=== PATIENT | male | born 1940 | race Caucasian/White ===

== ENCOUNTER 2016-07-08 12:51 | Inpatient (IN) | payer MEDICARE ==
[~2016-07-08] VITALS: Ht 188 cm; Wt 65.4 kg
[2016-07-08] MEDS ORDERED: SODIUM CHLORIDE 0.9% 1,000 ML IV ONE ×2 (14:45→16:15)
[2016-07-08] MEDS ORDERED: ONDANSETRON HCL 4 MG/2 ML VIAL IVP ONE (14:45)
[2016-07-08 14:58] LABS: BASOPHILS % (AUTO) 0.3 % (0.0-2.0); EOSINOPHILS % (AUTO) 0.6 % (1.0-6.0); HEMATOCRIT 53.8 % (41-53); HEMOGLOBIN 17.8 g/dL (13.5-17.5); LYMPHOCYTES # (AUTO) 0.8 K/uL (1.0-4.8); MEAN CORPUSCULAR HEMOGLOBIN 29.2 pg (26.0-34.0); MEAN CORPUSCULAR VOLUME 88 fL (80-100); MONOCYTES # (AUTO) 0.4 K/uL (0.1-1.0); NEUTROPHILS # (AUTO) 4.3 K/uL (1.8-7.7); NEUTROPHILS % (AUTO) 77.1 % (40.0-70.0); PLATELET COUNT (AUTO) 237 K/uL (150-450); RED BLOOD CELL COUNT(AUTO) 6.09 MIL/uL (4.50-5.90); RED CELL DISTRIBUTION WIDTH 13.8 % (11.5-14.5); WHITE BLOOD COUNT (AUTO) 5.6 K/uL (4.5-11.0)
[2016-07-08 15:20] LABS: ANION GAP 15 mmol/L (8-16); CALCIUM, TOTAL 9.8 mg/dL (8.8-10.5); CARBON DIOXIDE 25 mmol/L (22-29); CHLORIDE 100 mmol/L (98-107); CREATININE 1.14 mg/dL (0.60-1.30); GLOMERULAR FILTR. RATE CALC > 60 mL/min (>60); POTASSIUM 4.1 mmol/L (3.5-5.1); SODIUM SERUM 140 mmol/L (136-145); UREA NITROGEN, BLOOD 35 mg/dL (7-18)
[2016-07-08 15:22] LABS: ALANINE AMINOTRANSFERASE 19 U/L (12-78); ALBUMIN 4.1 g/dL (3.4-5.0); ASPARTATE AMINOTRANSFERASE 18 U/L (15-37); BILIRUBIN,TOTAL 2.6 mg/dL (0.1-1.0); TOTAL PROTEIN, SERUM 7.8 g/dL (6.4-8.2)
[2016-07-08 15:35] LABS: B-TYPE NATRIURETIC PEPTIDE 7 pg/mL (0-100)
[2016-07-08 16:45] LABS: ADD UA MICROSCOPIC NO; APPEARANCE,URINE CLEAR (CLEAR); GLUCOSE, URINE (UA) NEGATIVE (NEGATIVE); KETONES,URINE >=80 mg/dL (NEGATIVE); LEUKOCYTE ESTERASE ,URINE NEGATIVE (NEGATIVE); OCCULT BLOOD,URINE NEGATIVE (NEGATIVE); PROTEIN,URINE POS 1+ (NEGATIVE)
[2016-07-08] MEDS ORDERED: HALOPERIDOL 5 MG TABLET PO PRN (19:30)
[2016-07-08 21:08] VITALS: BP_SYST 125; BP_SYST 127; BP_DIAS 82; BP_DIAS 88; BP_DIAS 96
[2016-07-08] MEDS ORDERED: INFLUENZA VIRUS VACCINE QVS 2016-17 (3YR+)/PF 60 MCG/0.5 ML SYRINGE IM ONE (22:15)
[2016-07-09 08:00] VITALS: BP 117/69
[2016-07-09] MEDS ORDERED: BENZOCAINE/MENTHOL LOZENGE [8 LOZENGES/PACKET] MM PRN (09:15)
[2016-07-09] MEDS ORDERED: ACETAMINOPHEN 325 MG TABLET PO PRN (09:15)
[2016-07-09] MEDS ORDERED: CloNIDine HCL 0.1 MG TABLET PO PRN (09:15)
[2016-07-09] MEDS ORDERED: MAGNESIUM HYDROXIDE SUSPENSION 30 ML UDCUP PO PRN (09:15)
[2016-07-09] MEDS ORDERED: ALBUTEROL SULFATE HFA 90 MCG/PUFF 8 GM INHALER IH PRN (09:15)
[2016-07-09] MEDS ORDERED: IBUPROFEN 600 MG TABLET PO PRN (09:15)
[2016-07-09] MEDS ORDERED: PETROLATUM,WHITE 71 GM JELLY TP PRN (09:15)
[2016-07-09] MEDS ORDERED: ONDANSETRON HCL 4 MG TABLET PO PRN (09:15)
[2016-07-09] MEDS ORDERED: MAG HYDROX/AL HYDROX/SIMETH ES 30 ML SUSPENSION UDCUP PO PRN (09:15)
[2016-07-09] MEDS ORDERED: BACITRACIN 28.4 GM OINTMENT TP PRN (09:15)
[2016-07-09 19:18] VITALS: BP 125/70
[2016-07-09] MEDS: ZOLPIDEM TARTRATE 10 MG TABLET PO PRN (20:17)
[2016-07-10] MEDS ORDERED: INFLUENZA VIRUS VACCINE QVS 2016-17 (3YR+)/PF 60 MCG/0.5 ML SYRINGE IM ONE (00:15)
[2016-07-10] MEDS: ZIPRASIDONE HCL 40 MG CAPSULE PO SCH ×2 (06:39→17:16)
[2016-07-10 06:58] LABS: CHOL/HDL RATIO 2.8 (4.2-7.3); THYROID STIMULATING HORMONE 0.42 uIU/mL (0.36-3.74)
[2016-07-10 18:47] VITALS: BP 128/83
[2016-07-10] MEDS: SERTRALINE HCL 50 MG TABLET PO SCH (20:08)
[2016-07-10] MEDS: ZOLPIDEM TARTRATE 10 MG TABLET PO PRN (20:34)
[2016-07-11] MEDS: ZIPRASIDONE HCL 60 MG CAPSULE PO SCH ×2 (06:36→17:17)
[2016-07-11 08:07] VITALS: BP 121/82
[2016-07-11] MEDS: CHOLECALCIFEROL (VIT D3) 1,000 UNITS TABLET PO SCH (09:03)
[2016-07-11 16:53] VITALS: BP 134/80
[2016-07-11] MEDS: ZOLPIDEM TARTRATE 10 MG TABLET PO PRN (20:25)
[2016-07-11] MEDS: SERTRALINE HCL 50 MG TABLET PO SCH (20:25)
[2016-07-12] MEDS: ZIPRASIDONE HCL 60 MG CAPSULE PO SCH ×2 (06:32→17:30)
[2016-07-12 08:00] VITALS: BP 156/93
[2016-07-12] MEDS: CHOLECALCIFEROL (VIT D3) 1,000 UNITS TABLET PO SCH (09:22)
[2016-07-12 16:44] VITALS: BP 155/68
[2016-07-12] MEDS: SERTRALINE HCL 50 MG TABLET PO SCH (21:00)
[2016-07-13 05:50] VITALS: BP 128/81
[2016-07-13] MEDS: ZIPRASIDONE HCL 60 MG CAPSULE PO SCH ×2 (06:38→17:39)
[2016-07-13] MEDS: CHOLECALCIFEROL (VIT D3) 1,000 UNITS TABLET PO SCH (09:46)
[2016-07-13 10:04] VITALS: BP 151/92
[2016-07-13 16:45] VITALS: BP 131/78
[2016-07-13] MEDS: SERTRALINE HCL 100 MG TABLET PO SCH (21:01)
[2016-07-13] MEDS: ZOLPIDEM TARTRATE 10 MG TABLET PO PRN (21:02)
[2016-07-14] MEDS: ZIPRASIDONE HCL 60 MG CAPSULE PO SCH ×4 (06:36→17:21)
[2016-07-14 08:53] VITALS: BP 104/75
[2016-07-14] MEDS: CHOLECALCIFEROL (VIT D3) 1,000 UNITS TABLET PO SCH (09:31)
[2016-07-14 20:03] VITALS: BP 127/68
[2016-07-14] MEDS: SERTRALINE HCL 100 MG TABLET PO SCH (20:19)
[2016-07-14] MEDS: ZOLPIDEM TARTRATE 10 MG TABLET PO PRN (20:19)
[2016-07-15] MEDS: ZIPRASIDONE HCL 60 MG CAPSULE PO SCH ×2 (06:46→18:09)
[2016-07-15 08:47] VITALS: BP 140/82
[2016-07-15] MEDS: CHOLECALCIFEROL (VIT D3) 1,000 UNITS TABLET PO SCH (09:04)
[2016-07-15] MEDS: SERTRALINE HCL 100 MG TABLET PO SCH (09:04)
[2016-07-15 20:15] VITALS: BP 143/90
[2016-07-15] MEDS: TRIHEXYPHENIDYL HCL 5 MG TABLET PO SCH (21:10)
[2016-07-16] MEDS: ZIPRASIDONE HCL 60 MG CAPSULE PO SCH ×2 (06:56→17:32)
[2016-07-16] MEDS: SERTRALINE HCL 100 MG TABLET PO SCH (09:09)
[2016-07-16] MEDS: CHOLECALCIFEROL (VIT D3) 1,000 UNITS TABLET PO SCH (09:09)
[2016-07-16] MEDS: TRIHEXYPHENIDYL HCL 5 MG TABLET PO SCH ×3 (09:09→17:19)
[2016-07-16 09:53] VITALS: BP 110/71
[2016-07-16 16:53] VITALS: BP 121/76
[2016-07-16] MEDS ORDERED: TRIHEXYPHENIDYL HCL 5 MG TABLET PO SCH (18:45)
[2016-07-16 21:22] LABS: BASOPHILS # (AUTO) 0.03 K/uL (0.00-0.20); BASOPHILS % (AUTO) 0.7 % (0.0-2.0); EOSINOPHILS # (AUTO) 0.07 K/uL (0.00-0.70); EOSINOPHILS % (AUTO) 1.33 % (1.0-6.0); HEMATOCRIT 39.8 % (41-53); HEMOGLOBIN 13.5 g/dL (13.5-17.5); LYMPHOCYTES # (AUTO) 0.9 K/uL (1.0-4.8); MEAN CORPUSCULAR HEMOGLOBIN 30.1 pg (26.0-34.0); MEAN CORPUSCULAR HGB CONC 33.8 G/dL (31.0-37.0); MEAN CORPUSCULAR VOLUME 89 fL (80-100); MONOCYTES # (AUTO) 0.5 K/uL (0.1-1.0); NEUTROPHILS # (AUTO) 3.6 K/uL (1.8-7.7); PLATELET COUNT (AUTO) 220 K/uL (150-450); RED BLOOD CELL COUNT(AUTO) 4.47 MIL/uL (4.50-5.90); RED CELL DISTRIBUTION WIDTH 14.5 % (11.5-14.5); WHITE BLOOD COUNT (AUTO) 5.1 K/uL (4.5-11.0)
[2016-07-16 21:52] LABS: ALANINE AMINOTRANSFERASE 26 U/L (12-78); ALBUMIN 3.3 g/dL (3.4-5.0); ANION GAP 5 mmol/L (8-16); ASPARTATE AMINOTRANSFERASE 20 U/L (15-37); BILIRUBIN,TOTAL 0.6 mg/dL (0.1-1.0); CARBON DIOXIDE 31 mmol/L (22-29); CHLORIDE 107 mmol/L (98-107); CREATININE 1.03 mg/dL (0.60-1.30); GLOMERULAR FILTR. RATE CALC > 60 mL/min (>60); POTASSIUM 4.3 mmol/L (3.5-5.1); SODIUM SERUM 143 mmol/L (136-145); TOTAL PROTEIN, SERUM 6.6 g/dL (6.4-8.2); UREA NITROGEN, BLOOD 27 mg/dL (7-18)
[2016-07-17] MEDS: LORazepam 2 MG TABLET PO PRN (03:19)
[2016-07-17 06:30] VITALS: BP 131/61
[2016-07-17] MEDS: ZIPRASIDONE HCL 60 MG CAPSULE PO SCH ×2 (06:47→17:49)
[2016-07-17] MEDS: BENZTROPINE MESYLATE 0.5 MG TABLET PO SCH ×2 (09:00→17:49)
[2016-07-17] MEDS: CHOLECALCIFEROL (VIT D3) 1,000 UNITS TABLET PO SCH (09:00)
[2016-07-17] MEDS: SERTRALINE HCL 100 MG TABLET PO SCH (09:00)
[2016-07-17 15:36] VITALS: BP 128/78
[2016-07-17 17:15] VITALS: BP 109/65
[2016-07-17] MEDS ORDERED: TUBERCULIN, PURIFIED PROTEIN DERIVATIVE 5 TU/0.1 ML SYG ID ONE (18:15)
[2016-07-18] MEDS: ZIPRASIDONE HCL 60 MG CAPSULE PO SCH ×2 (07:00→17:02)
[2016-07-18 08:45] VITALS: BP 116/74
[2016-07-18] MEDS: BENZTROPINE MESYLATE 0.5 MG TABLET PO SCH ×2 (09:00→17:02)
[2016-07-18] MEDS: CHOLECALCIFEROL (VIT D3) 1,000 UNITS TABLET PO SCH (09:00)
[2016-07-18] MEDS: SERTRALINE HCL 100 MG TABLET PO SCH (09:00)
[2016-07-18 17:23] VITALS: BP 126/76
[2016-07-19] MEDS: ZIPRASIDONE HCL 60 MG CAPSULE PO SCH ×2 (06:38→17:58)
[2016-07-19 08:05] VITALS: BP 102/76
[2016-07-19] MEDS: BENZTROPINE MESYLATE 0.5 MG TABLET PO SCH ×2 (09:00→17:59)
[2016-07-19] MEDS: SERTRALINE HCL 100 MG TABLET PO SCH (09:00)
[2016-07-19] MEDS: CHOLECALCIFEROL (VIT D3) 1,000 UNITS TABLET PO SCH (09:00)
[2016-07-19 17:00] VITALS: BP 146/85
[2016-07-20] MEDS: ZIPRASIDONE HCL 60 MG CAPSULE PO SCH ×2 (07:02→17:30)
[2016-07-20 08:58] VITALS: BP 135/92
[2016-07-20] MEDS: SERTRALINE HCL 100 MG TABLET PO SCH ×2 (09:00→09:45)
[2016-07-20] MEDS: BENZTROPINE MESYLATE 0.5 MG TABLET PO SCH ×3 (09:00→17:00)
[2016-07-20] MEDS: CHOLECALCIFEROL (VIT D3) 1,000 UNITS TABLET PO SCH ×2 (09:00→09:45)
[2016-07-20] MEDS: LOPERAMIDE HCL 2 MG CAPSULE PO PRN ×2 (09:45→11:20)
[2016-07-20] MEDS: LORazepam 2 MG TABLET PO PRN (09:45)
[2016-07-20 16:26] VITALS: BP 136/86
[2016-07-20] MEDS: TraZODone HCL 50 MG TABLET PO SCH (21:00)
[2016-07-21 08:00] VITALS: BP 134/87
[2016-07-21] MEDS: CHOLECALCIFEROL (VIT D3) 1,000 UNITS TABLET PO SCH (11:00)
[2016-07-21] MEDS: LamoTRIgine 25 MG TABLET PO SCH (11:00)
[2016-07-21 16:54] VITALS: BP 133/79
[2016-07-21] MEDS: TraZODone HCL 50 MG TABLET PO SCH (21:21)
[2016-07-22 08:02] VITALS: BP 128/79
[2016-07-22] MEDS: LamoTRIgine 25 MG TABLET PO SCH (09:35)
[2016-07-22] MEDS: CHOLECALCIFEROL (VIT D3) 1,000 UNITS TABLET PO SCH (09:35)
[2016-07-22 19:09] VITALS: BP 134/81
[2016-07-22] MEDS ORDERED: MIRTAZAPINE 15 MG TABLET PO SCH (21:00)
[2016-07-22] MEDS: TraZODone HCL 50 MG TABLET PO SCH (21:11)
[2016-07-22] MEDS: ZOLPIDEM TARTRATE 10 MG TABLET PO PRN (21:11)
[2016-07-23 08:05] VITALS: BP 112/74
[2016-07-23] MEDS: CHOLECALCIFEROL (VIT D3) 1,000 UNITS TABLET PO SCH (09:07)
[2016-07-23] MEDS: LamoTRIgine 25 MG TABLET PO SCH (09:07)
[2016-07-23 17:55] VITALS: BP 128/76
[2016-07-23] MEDS: TraZODone HCL 50 MG TABLET PO SCH (20:18)
[2016-07-23] MEDS ORDERED: MIRTAZAPINE 15 MG TABLET PO SCH (21:00)
[2016-07-24 08:04] VITALS: BP 110/68
[2016-07-24] MEDS: LamoTRIgine 25 MG TABLET PO SCH (09:25)
[2016-07-24] MEDS: CHOLECALCIFEROL (VIT D3) 1,000 UNITS TABLET PO SCH (09:25)
[2016-07-24] MEDS: LOPERAMIDE HCL 2 MG CAPSULE PO PRN (09:25)
[2016-07-24 16:53] VITALS: BP 134/81
[2016-07-24] MEDS: MIRTAZAPINE 15 MG TABLET PO SCH (20:28)
[2016-07-24] MEDS: TraZODone HCL 50 MG TABLET PO SCH (20:49)
[2016-07-25 08:12] VITALS: BP 136/90
[2016-07-25] MEDS: CHOLECALCIFEROL (VIT D3) 1,000 UNITS TABLET PO SCH (09:34)
[2016-07-25] MEDS: LamoTRIgine 100 MG TABLET PO SCH (09:34)
[2016-07-25 16:38] VITALS: BP 139/84
[2016-07-25] MEDS: MIRTAZAPINE 15 MG TABLET PO SCH (20:10)
[2016-07-25] MEDS: TraZODone HCL 50 MG TABLET PO SCH (20:10)
[2016-07-26 08:23] VITALS: BP 136/72
[2016-07-26] MEDS: CHOLECALCIFEROL (VIT D3) 1,000 UNITS TABLET PO SCH (09:22)
[2016-07-26] MEDS: LamoTRIgine 100 MG TABLET PO SCH (09:22)
[2016-07-26 16:27] VITALS: BP 113/82
[2016-07-26] MEDS: TraZODone HCL 50 MG TABLET PO SCH (20:13)
[2016-07-26] MEDS: MIRTAZAPINE 15 MG TABLET PO SCH (20:13)
[2016-07-27 08:50] VITALS: BP 128/78
[2016-07-27] MEDS: CHOLECALCIFEROL (VIT D3) 1,000 UNITS TABLET PO SCH (09:04)
[2016-07-27] MEDS: LamoTRIgine 100 MG TABLET PO SCH (09:04)
[2016-07-27 16:34] VITALS: BP 112/76
[2016-07-27] MEDS: TraZODone HCL 50 MG TABLET PO SCH (21:42)
[2016-07-27] MEDS: MIRTAZAPINE 15 MG TABLET PO SCH (21:42)
[2016-07-28 00:50] VITALS: BP 118/70
[2016-07-28] MEDS: ZOLPIDEM TARTRATE 10 MG TABLET PO PRN (00:54)
[2016-07-28] MEDS: CHOLECALCIFEROL (VIT D3) 1,000 UNITS TABLET PO SCH (08:19)
[2016-07-28] MEDS: LamoTRIgine 100 MG TABLET PO SCH (08:19)
[2016-07-28 08:59] VITALS: BP 132/77
[2016-07-28] MEDS ORDERED: VITAD1000 PO (09:46)
[2016-07-28] MEDS ORDERED: LAMO100 PO (09:47)
[2016-07-28] MEDS ORDERED: TRAZ-144 PO (09:47)
== END 2016-07-28 13:45 | disposition home or self-care (01) | DRG 885 ==
LOC: EMS 12:53 → 3EI 20:31
PROVIDERS: ADMIT Psychiatry & Neurology Psychiatry; ATTEND Psychiatry & Neurology Psychiatry
DX: F31.4 Bipolar disorder, current episode depressed, severe, without psychotic features (principal); E44.0 Moderate protein-calorie malnutrition; R45.851 Suicidal ideations; Z68.1 Body mass index [BMI] 19.9 or less, adult; F31.9 Bipolar disorder, unspecified; F41.9 Anxiety disorder, unspecified; I10 Essential (primary) hypertension; K59.00 Constipation, unspecified; M19.90 Unspecified osteoarthritis, unspecified site; Z90.49 Acquired absence of other specified parts of digestive tract; Z88.6 Allergy status to analgesic agent; Z91.19 Patient's noncompliance with other medical treatment and regimen; Z28.21 Immunization not carried out because of patient refusal; Z79.899 Other long term (current) drug therapy
CPT/HCPCS: 82306; 84443; 93005; 96360; 96361; 96374; 99285; J2405; J7030; Q0162